=== PATIENT | male | born 1980 | race Caucasian/White ===

== ENCOUNTER 2017-07-30 21:56 | Inpatient (IN) ==
[2017-07-30] MEDS ORDERED: 0.9 % Sodium Chloride 1,000 ML IVC ONE (22:16)
--- NOTE | 2017-07-30 22:31 | Emergency Department Note ---
Disposition Clinical Impression: Cellulitis of right foot Disposition: Admitted As Inpatient Condition: Good Referrals: NONE,PCP [Primary Care Provider] - Forms: ED Satisfaction Letter Skin/Abscess/FB HPI Chief complaint: ED Skin/Abscess/Foreign Body Stated complaint: sores all over states bugs on skin rt ft infect Time Seen by Provider: 07/30/17 22:09 Source: patient Mode of arrival: private vehicle Limitations: no limitations Nursing Notes Reviewed: Yes Vital Signs Reviewed: Yes HPI Narrative: 37-year-old male history of IVDU presents to the ER with a chief complaint of right foot injury. Patient reports on Monday that they were moving something in a trae nail went into the top of his shoe and into his toe. Reports that he was seen 2 days ago and put on Keflex. States that the redness and swelling has worsened since then. No fevers nausea vomiting or diarrhea. Unsure when his last tetanus shot was. He reports he last used IV drugs 5 years ago. No other complaints. Pt Subjective Complaint: lesion Onset (ago): day(s) Tetanus Up to Date: no Location: R foot Consistency: constant Improves with: none Worsens with: none Associated symptoms: Denies: fever, chills, nausea, vomiting Treatments prior to arrival: antibiotic Previous Rx's Medication Instructions Recorded Sulfamethoxazole/Trimeth DS 1 each PO BID #20 tablet 01/01/17 [Bactrim DS] cephALEXin [Keflex] 500 mg PO BID #20 capsule 01/01/17 Allergies Allergy/AdvReac Type Severity Reaction Status Date / Time venom-honey bee Allergy See Verified 07/30/17 22:04 [bee venom (honey bee)] Comments All systems ED: reviewed and negative except as stated. Constitutional: Denies: fever, chills Gastrointestinal: Denies: abdominal pain, nausea, vomiting, diarrhea Integumentary: Reports: lesions Past Medical History - Past Medical History Attestation: Yes The following information was validated with the patient. Source: patient Medical history: Reports: non-contributory Psychiatric history: Reports: bipolar - Social History Smoking Status: Current every day smoker Smokeless Tobacco Status: No Alcohol use: Reports: none Drug use: Reports: none Physical Exam - General Limitations: no limitations General appearance: alert, in no apparent distress - Head Head exam: atraumatic, normocephalic - Eye Eye exam: Present: normal appearance - ENT ENT exam: normal exam - Neck Neck exam: Present: normal inspection - Chest Chest inspection: Present: normal inspection, symmetric chest wall rise - Respiratory Respiratory exam: Present: normal lung sounds bilaterally - Cardiovascular Cardiovascular exam: Present: regular rate, normal rhythm, normal heart sounds - Abdominal Exam Abdominal exam: Present: soft, Non-Tender. Absent: tenderness - Extremities Exam Extremities exam: Present: normal inspection, full ROM - Expanded Upper Extremity Exam Shoulder exam: Present: normal inspection, full ROM Arm exam: Present: normal inspection, full ROM Elbow exam: Present: normal inspection, full ROM Forearm/Wrist exam: Present: normal inspection, full ROM Hand exam: Present: normal inspection, full ROM - Expanded Lower Extremity Exam Hip/Pelvis exam: Present: normal inspection, full ROM Upper leg exam: Present: normal inspection, full ROM Knee exam: Present: normal inspection, full ROM Lower leg exam: Present: normal inspection, full ROM Ankle exam: Present: normal inspection, full ROM Foot/toe exam: Present: full ROM, tenderness (There is tenderness over the dorsum of the right foot), swelling (Extensive soft tissue swelling over the dorsum and medial aspect of the right foot just distal to the ankle), erythema ( Right foot), puncture wound (There is an ulceration at the base of the right great toe with purulent drainage.). Absent: crepitus - Neurological Exam Neurological exam: Present: alert - Psychiatric Psychiatric exam: Present: normal affect - Skin Skin exam: Present: warm, dry, intact Course Course Narrative: Patient seen and examined. Extensive swelling and erythema noted to the right foot. We will obtain a CT scan of his foot as well as labs including ESR and CRP. He will require admission for failed outpatient therapy. He again denies injecting anything into his foot. - Reevaluation(s) Reevaluation #1: Discussed results of imaging and labs with the patient. Vital Signs Temperature 98.2 F 07/30/17 22:04 Pulse Rate 96 07/30/17 22:04 Respiratory Rate 16 07/30/17 22:04 Blood Pressure 125/72 07/30/17 22:04 O2 Sat by Pulse Oximetry 99 07/30/17 22:04 Temperature 98.2 F 07/30/17 22:04 Pulse Rate 86 07/30/17 23:16 Respiratory Rate 16 07/30/17 23:16 Blood Pressure 129/80 07/30/17 23:16 O2 Sat by Pulse Oximetry 97 07/30/17 23:16 Oxygen Delivery Oxygen Delivery Room Air Skin/Abscess/Foreign Body - MDM Narrative Medical decision making narrative: 37-year-old male presents to the ER due to right foot swelling and redness. History of knell striking the top of his foot several days ago. No constitutional symptoms at home. He has been on Keflex 2 days without improvement and actually worsening of symptoms. Elevated ESR and CRP here. CT does not demonstrate any evidence of osteomyelitis more consistent with soft tissue swelling and cellulitis. He has failed outpatient therapy. Patient given vancomycin and Zosyn. Admitted to the hospitalist service for cellulitis felt outpatient therapy. - Lab Data Lab results reviewed: Yes I reviewed the patient's lab results. Result diagrams: 07/30/17 22:30 07/30/17 22:30 Lab Results 07/30/17 07/30/17 07/30/17 Range/Units 22:30 22:30 22:30 WBC 8.9 (4.3-11.1) K/mcL RBC 4.79 (4.19-5.50) M/mcL Hgb 12.9 (12.9-16.9) g/dL Hct 39.9 (37.5-50.1) % MCV 83.3 (83.0-100.0) fL MCH 26.9 L (28.0-33.3) pg MCHC 32.3 (31.6-35.5) g/dL RDW 13.5 (11.5-14.5) % Plt Count 243 (140-400) K/mcL MPV 9.0 L (9.4-12.4) fL Immature Gran % 0.2 (0-4) % Seg Neutrophils % 60.4 % Lymphocytes % 27.9 % Monocytes % 7.5 % Eosinophils % 3.3 % Basophils % 0.7 % Neutrophils # 5.4 (1.6-8.9) K/mcL Lymphocytes # 2.5 (0.6-4.6) K/mcL Monocytes # 0.7 (0.0-1.3) K/mcL Eosinophils # 0.3 (0.0-0.6) K/mcL Basophils # 0.1 (0.0-0.2) K/mcL ESR 67 H (0-10) mm/hr Sodium 139 (136-145) mEq/L Potassium 3.7 (3.5-4.5) mEq/L Chloride 102 (98-109) mEq/L Carbon Dioxide 28 (19-29) mEq/L BUN 15 (8-26) mg/dL Creatinine 0.87 (0.72-1.25) mg/dL Est GFR ( Amer) > 60 (> 60) Est GFR (Non-Af Amer) > 60 (> 60) BUN/Creatinine Ratio 17 (6-26) Glucose 104 H (70-99) mg/dL Calculated Osmolality 289 (280-300) Calcium 9.3 (8.6-10.8) mg/dL C-Reactive Protein 46 H (Less than 5) mg/L - Radiology Data Radiology results reviewed: Yes I reviewed the patient's radiology results. Foot CT 07/30/17 22:17 IMPRESSION: Soft tissue swelling about the foot most prominent dorsally in about the 1st digit. No cortical erosion or periostitis to suggest osteomyelitis. D/ / Chichi Murray MD / Chichi Murray MD Interpreting Provider: Chichi Murray MD Critical Care Time Critical Care Time: Yes Total Critical Care Time: 35 Attestation: Critical care performed: Time is exclusive of separately billable procedures. Time includes: direct patient care, patient reassessment, coordination of patient care, interpretation of data (laboratory data, radiology data, and respiratory data), review of patient's medical records, medical consultation and documentation of patient care. Procedures included in critical care time: Procedures excluded from critical care time: S.B.A.R. - S.B.A.R. Situation: Demographics, MOA Background: Presenting Complaint, Relevant PMH, Meds, & Allergies Assessment: Course and respsone to treatment, Exam Concerns, Patient/Family Expectation, Pertinant Lab Results Recommendation: Barrier(s) to disposition, Recommendation based on pending studies, treatments, or consults S.B.A.R. Report Given to: Dr. Michele Attestation Statement - Attestation Attestation: I, Todd Mcfadden MD, personally evaluated this patient and discussed their management with the resident physician. I reviewed the resident's note and agree with the documented findings, medical decision making, and plan of care. 37-year-old male presents to the emergency department with a complaint of a puncture wound to the top of the right foot which occurred 4 days ago. This was caused by a trae nail in a piece of lumber that he dropped on his foot. He was seen 2 days ago at another facility and started on Keflex. He presents here tonight complaining that the area is just getting progressively worse despite the Keflex. He complains of increased pain and swelling and redness to the right big toe and distal foot. He has an ulceration on the top of the foot with. The drainage. He denies any fever. On examination patient is a well-developed well-nourished well-appearing male in no acute distress. He is alert and oriented 3. There is no cyanosis or diaphoresis. Breath sounds are clear and equal bilaterally. Heart regular rate and rhythm. Abdomen is soft and nontender with normal bowel sounds. The right big toe and distal right foot are markedly swollen and erythematous and warm to touch. Markedly tender to palpation. There is an open ulceration on the dorsum of the right distal foot at the base of the big toe with purulent drainage. No palpable crepitus. Labs reviewed. WBC normal with normal differential. Elevated ESR and CRP. CT of the foot obtained and shows soft tissue swelling with no evidence of osteomyelitis. Blood cultures and wound culture obtained and patient started on IV vancomycin and Zosyn. The hospitalist, Dr. Michele, was consulted and accepted admission of the patient.
[2017-07-30 22:40] LABS: Basophils # 0.1 K/mcL (0.0-0.2); Basophils % 0.7 %; Eosinophils # 0.3 K/mcL (0.0-0.6); Eosinophils % 3.3 %; Hematocrit 39.9 % (37.5-50.1); Hemoglobin 12.9 g/dL (12.9-16.9); Immature Granulocytes % 0.2 % (0-4); Lymphocytes # 2.5 K/mcL (0.6-4.6); Lymphocytes % 27.9 %; Mean Corpuscular HGB Conc 32.3 g/dL (31.6-35.5); Mean Corpuscular Hemoglobin 26.9 pg (28.0-33.3); Mean Corpuscular Volume 83.3 fL (83.0-100.0); Monocytes # 0.7 K/mcL (0.0-1.3); Monocytes % 7.5 %; Neutrophils # 5.4 K/mcL (1.6-8.9); Platelet Count 243 K/mcL (140-400); Red Blood Count 4.79 M/mcL (4.19-5.50); Red Cell Distribution Width 13.5 % (11.5-14.5); Segmented Neutrophils % 60.4 %
[2017-07-30 22:53] LABS: BUN/Creatinine Ratio 17 (6-26); Blood Urea Nitrogen 15 mg/dL (8-26); C-Reactive Protein 46 mg/L (Less than 5); Calcium 9.3 mg/dL (8.6-10.8); Carbon Dioxide 28 mEq/L (19-29); Chloride 102 mEq/L (98-109); Glucose 104 mg/dL (70-99); Osmolality,Calculated 289 (280-300); Potassium 3.7 mEq/L (3.5-4.5); Sodium 139 mEq/L (136-145); eGFR For African Americans > 60 (> 60); eGFR For Non-African Americans > 60 (> 60)
[2017-07-30] MEDS ORDERED: Piperacillin/Tazobactam 3.375 GM in D5% in Water (Mini-Bag+) 100 ML IVPB ONE (23:27)
[2017-07-30] MEDS ORDERED: Vancomycin 1,250 MG in D5% in Water 250 ML IVPB ONE (23:27)
[2017-07-31] MEDS ORDERED: Acetaminophen 325 MG TABLET PO PRN (02:58)
[2017-07-31] MEDS ORDERED: Naloxone 0.4 MG/ML INJ IVP PRN (02:58)
[2017-07-31] MEDS ORDERED: Ketorolac 30 MG/ML VIAL IVP PRN ×2 (02:58→17:04)
[2017-07-31] MEDS ORDERED: Ondansetron 4 MG/2 ML VIAL IVP PRN (02:58)
[2017-07-31] MEDS ORDERED: Td (TENIVAC) Vaccine 0.5 ML VIAL IM ONE (03:00)
--- NOTE | 2017-07-31 03:07 | Internal Med History&Physical ---
<Jose Alberto Landry - Last Filed: 07/31/17 03:03> Date of Encounter: 07/31/17 Time of Encounter: 03:03 Assessment and Plan (1) Cellulitis of right foot Current visit: Yes Status: Acute - Distal right hallux lesion from uasc. - CT shows no osteomyelitis or abscess. - Failed outpatient keflex, bactrim - Wound and blood cultures pending. - Will start vancomycin and zosyn. tetanus vaccine. (2) DVT prophylaxis Current visit: Yes Status: Acute - heparin 5000 units. Internal Medicine - H&P: HPI Chief complaint: right first toe injury Admitted From: Emergency Dept Plans for Post Hospital Care: Home History of present illness: Mr. Prado is a 37 year old male with PMHx of former heroin abuse presents to ED with a complaint of right 1st toe injury. 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 He states this is the 3rd ED he has gone to. He has tried bactrim and keflex at other EDs and has taken 2 days of keflex however it has been getting worse. He has noticed erythema, swelling, purulent discharge but denies symptoms of fevers, chills, nausea, vomiting, SOB, CP. He states he is not up to date on his tetanus shot. In the ED, VS unremarkable. Labs show elevated ESR and CRP, otherwise unremarkable. CT scan showed soft tissue inflammation without evidence of abscess or osteomyelitis. Past Med Surg Social Fam HX - Past Medical History Medical history: non-contributory Psychiatric history: bipolar - Social History Smoking Status: Current every day smoker Smokeless Tobacco Status: No Alcohol use: none Drug use: none (former heroin abuse, 5 years clean) - Family History Mother Name: MIKE BAILEY Living Status: Still Living Hx Family Endocrine Disorder: Yes (DM) Internal Medicine - H&P: Meds Sulfamethoxazole/Trimeth DS [Bactrim DS] 1 each PO BID #20 tablet 01/01/17 [Rx] cephALEXin [Keflex] 500 mg PO BID #20 capsule 01/01/17 [Rx] 3 Allergy/AdvReac Type Severity Reaction Status Date / Time venom-honey bee Allergy See Verified 07/30/17 22:04 [bee venom (honey bee)] Comments All Systems PM: A 10-system review of systems was performed and is negative for pertinent findings except as documented above in the HPI. - Constitutional Constitutional: no chills, no fatigue, no fever(s), no lethargy - Cardiovascular Cardiovascular ROS IM: no chest pain, no dyspnea, no dyspnea on exertion - Respiratory Respiratory: no cough, no dyspnea, no dyspnea on exertion - Gastrointestinal Gastrointestinal: no abdominal pain, no nausea, no vomiting - Musculoskeletal Musculoskeletal ROS IM: numbness (distal right hallux), no tingling - Integumentary Integumentary IM: erythema, new lesions (right dorsum of hallux. ) - Neurological Neurological ROS: numbness, no tingling, no weakness - Constitutional Vitals: Temp Pulse Resp BP Pulse Ox 98.8 F 79 17 130/79 99 07/31/17 01:43 07/31/17 01:43 07/31/17 01:43 07/31/17 01:43 07/31/17 01:43 Exam: Gen.: Vitals noted. No acute distress. AAOx3 HEENT: oropharynx clear, Normocephalic, atraumatic, MMM Cardiac: RRR, no murmur, +S1/S2 Pulmonary: CTA bilaterally, no wheezes, rales or rhonchi, equal chest expansion MSK: ROM intact, no joint swelling noted Extremities: Right hallux with linear incision measuring 2 cm. Purulent drainage. Erthema and swelling extending to mid foot. Distal pulses intact. Decreased sensation in distal hallux. no BLE edema, nontender calf, no cyanosis or clubbing Neuro: A&Ox3, moves all extremities, no focal deficits Psych: Appropriate mood and behavior Internal Med - H&P Results - Labs CBC & Chem 7: 07/30/17 22:30 07/30/17 22:30 <To Michele - Last Filed: 07/31/17 05:11> Date of Encounter: 07/31/17 Time of Encounter: 04:30 - Constitutional Constitutional: no chills, no fever(s), no night sweats - EENT Eyes: no blurry vision, no change in vision Ears: no ear pain, no tinnitus Nose, mouth and throat: no sore throat - Cardiovascular Cardiovascular ROS IM: no chest pain, no dyspnea - Respiratory Respiratory: no cough, no hemoptysis - Gastrointestinal Gastrointestinal: no abdominal pain, no diarrhea, no nausea, no vomiting - Genitourinary Genitourinary ROS male: no dysuria, no flank pain, no hematuria - Musculoskeletal Musculoskeletal ROS IM: joint swelling (at site of foot injury) - Neurological Neurological ROS: no focal weakness, no headache(s) - Psychiatric Psychiatric: no anxiety, no depression - Endocrine Endocrine IM: no polydipsia, no polyuria - Hematologic/Lymphatic Hematologic/Lymphatic: no easy bruising - Allergic/Immunologic Allergic/Immunologic: no GI upset with certain foods - Constitutional Vitals: Temp Pulse Resp BP Pulse Ox 98.7 F 75 18 128/75 99 07/31/17 04:05 07/31/17 04:05 07/31/17 04:05 07/31/17 04:05 07/31/17 04:05 General appearance: Present: cooperative, A&O X 3 - Head Head exam: Present: atraumatic - Eye Eye exam: Present: PERRL. Absent: scleral icterus - ENT ENT exam: Absent: mucous membranes dry, normal exam - Neck Neck exam general surgery: Present: supple - Respiratory Respiratory exam: Present: CTAB. Absent: rales, rhonchi, wheezes - Cardiovascular Cardiovascular exam: Present: RRR, +S1, +S2 - GI/Abdominal GI/Abdominal exam: Present: soft. Absent: tenderness - Extremities Exam Extremities exam: Present: full ROM. Absent: calf tenderness Additional comments: right with swelling, redness, warmth, open wound with mild purulent drainage just proximal to right great toe - Back Exam Back exam: Absent: CVA tenderness (L), CVA tenderness (R) Internal Med - H&P Results - Labs CBC & Chem 7: 07/30/17 22:30 07/30/17 22:30 - Attending Attestation I discussed the patient POARCH, PMH, ROS, lab data, and exam findings with Dr. Landry. I then saw and examined patient independently as well. Patient has a foot wound with surrounding cellulitis and drainage from the open wound. I reviewed the CT fidnings. I agree with Tetanus vaccine. Given the nature of his injury and the extent of infection, I will consult Podiatry to see him as he may need surgical intervention this hospitalization. Patient is a former heroin abuser, but he has been clean for ~ 5 years. He is very open and appears honest and telling the truth. Cultures have been collected both from blood and from his wound. Other than my comments noted above and exam findings , I agree with Dr. Landry's assessment and plan.
[2017-07-31] MEDS ORDERED: Vancomycin 1,250 MG in D5% in Water 250 ML IVPB SCH (04:00)
[2017-07-31] MEDS: *HR* Heparin 5,000 UNIT/ML VIAL SQ SCH ×2 (06:52→17:13)
[2017-07-31] MEDS: Piperacillin/Tazobactam 3.375 GM in D5% in Water 50 ML IVPB SCH ×3 (09:37→23:56)
--- NOTE | 2017-07-31 12:21 | Podiatry Consult Note ---
Date of Encounter: 07/31/17 Time of Encounter: 12:05 Assessment and Plan (1) Cellulitis of right foot Current visit: Yes Status: Acute Cellulitis of right hallux secondary to a traumatic wound. Right Foot CT: Soft tissue swelling about the foot most prominent dorsally in about the 1st digit. No cortical erosion or periostitis to suggest osteomyelitis. No fluid collection seen. ESR: 67, CRP: 46 WBC: 8.9 Wound and Blood cultures obtained and pending. Scant amount of pus expressed from wound with palpation to the base of the right great toe. Plan: Currently on IV Zosyn and Vancomycin. If no improvement to right hallux after 24 hours of IV antibiotic therapy will plan for a debridement by Dr. Marshall. Will follow up with patient tomorrow. Wound care orders will be written to cleanse right great toe daily with soap and water, pat dry, apply 4x4 dry sterile gauze with kerlix and tape. History of Present Illness HPI: Mr. Prado is a 37 year old male admitted to [facility] with cellulitis of the right foot. Patient has no medical history. Psychiatric history of Bipolar, patient states he does not take any medication. Patient states 5 days ago he was helping a friend tear down a barn and wood with nails fell on his right foot. Patient states a nail went through his right shoe and into his foot. Patient states there was a small pinpoint hole where the nail went in. Patient went to the ED where he was started on Penicillin. Patient states the right great toe continued to swell with redness and went back to the ED where they started him on Keflex. Patient states the toe got worse and that is what brought him to the ED last night. Patient does have a history of IV drug abuse, denies any current recreational drug use. Per medical records patient was treated in the ED for a heroin OD in September of 2016. 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 No c/o fever, chills, cp, sob or flu like symptoms. Past Med Surg Social Fam HX - Past Medical History Medical history: non-contributory Psychiatric history: bipolar - Social History Smoking Status: Current every day smoker Smokeless Tobacco Status: No Alcohol use: none Drug use: none (former heroin abuse, 5 years clean) - Family History Mother Name: MIKE LYNN Living Status: Still Living Hx Family Endocrine Disorder: Yes (DM) Medications and Allergies No Known Home Drugs 07/31/17 [History] 3 Allergy/AdvReac Type Severity Reaction Status Date / Time venom-honey bee Allergy See Verified 07/30/17 22:04 [bee venom (honey bee)] Comments All Systems Reviewed: A 10-system review of systems was performed and is negative for pertinent findings except as documented above in the HPI. Physical Exam - Constitutional Vitals: Temp Pulse Resp BP Pulse Ox 97.9 F 74 14 128/72 97 07/31/17 11:15 07/31/17 11:15 07/31/17 11:15 07/31/17 11:15 07/31/17 11:15 - Head Head exam: Present: atraumatic, normal inspection - Expanded Lower Extremities Exam Foot/Toe exam: Present: erythema (Right great toe is globally edematous and erythematous with an open wound to the dorsal aspect of the right hallux measuring 1.2 cm in length x 2 cm in width. Base of wound is red and yellow periwound ertythema ascending to the 1st metatarasl heads and #2 through #5 metatarsal heads of the right foot. Scant amount of pus expressed, no probe to bone, no exposed bone, ligament or tendon. No odor. Foot is warm. Pedal pulses palpable. ) - Neurological Exam Neurological exam: Present: alert, oriented X3 - Vascular Capillary Refill: less than 3 seconds - Ankle & Foot Exam: Muscle strength: 5/5 and equal bilaterally. Results - Labs Result Diagrams: 07/30/17 22:30 07/30/17 22:30 Labs: Abnormal lab results MCH 26.9 pg (28.0-33.3) L 07/30/17 22:30 MPV 9.0 fL (9.4-12.4) L 07/30/17 22:30 ESR 67 mm/hr (0-10) H 07/30/17 22:30 Glucose 104 mg/dL (70-99) H 07/30/17 22:30 C-Reactive Protein 46 mg/L (Less than 5) H 07/30/17 22:30 All other labs normal. Consult Discharge Plan - Plan Referrals: NONE,PCP [Primary Care Provider] -
[2017-07-31] MEDS: Vancomycin 1,250 MG in D5% in Water 250 ML IVPB SCH ×2 (15:02→23:56)
--- NOTE | 2017-07-31 16:05 | Event Note ---
Date of Encounter: 07/31/17 Time of Encounter: 16:04 37-year-old male with no significant past medical history, admitted with right great toe/foot infection after receiving the heavy blow to his right foot at work place about 5 days ago. Patient seen and examined at bedside. Right foot pain controlled with Tylenol. Chest-S1, S2 heard. Lungs are clear to auscultation Right great toe-surgical dressing intact. Right great toe/foot cellulitis-continue IV vancomycin and Zosyn for now. Follow-up blood and wound cultures. Pain control with when necessary Tylenol, Toradol and Percocet. Podiatry consult noted, continue local wound care, plan for possible debridement in the event of poor wound healing. CT right foot shows no evidence of osteomyelitis.
--- NOTE | 2017-07-31 19:01 | Event Note ---
Date of Encounter: 07/31/17
[2017-07-31] MEDS: *HR* OxyCODONE/APAP 5/325 TABLET PO PRN (20:50)
[2017-08-01] MEDS: *HR* Heparin 5,000 UNIT/ML VIAL SQ SCH (05:39)
[2017-08-01 07:13] VITALS: BP 119/79
[2017-08-01] MEDS: Piperacillin/Tazobactam 3.375 GM in D5% in Water 50 ML IVPB SCH (09:20)
[2017-08-01 10:20] LABS: Hematocrit 43.1 % (37.5-50.1); Mean Corpuscular HGB Conc 32.5 g/dL (31.6-35.5); Mean Platelet Volume 9.1 fL (9.4-12.4); Platelet Count 268 K/mcL (140-400); Red Blood Count 5.19 M/mcL (4.19-5.50); Red Cell Distribution Width 13.2 % (11.5-14.5)
[2017-08-01 10:33] LABS: BUN/Creatinine Ratio 12 (6-26); Blood Urea Nitrogen 10 mg/dL (8-26); Calcium 9.9 mg/dL (8.6-10.8); Carbon Dioxide 28 mEq/L (19-29); Chloride 104 mEq/L (98-109); Glucose 118 mg/dL (70-99); Osmolality,Calculated 290 (280-300); Potassium 4.5 mEq/L (3.5-4.5); Sodium 140 mEq/L (136-145); eGFR For African Americans > 60 (> 60); eGFR For Non-African Americans > 60 (> 60)
[2017-08-01] MEDS: *HR* OxyCODONE/APAP 5/325 TABLET PO PRN (11:41)
[2017-08-01] MEDS: Vancomycin 1,250 MG in D5% in Water 250 ML IVPB SCH (11:41)
[2017-08-01] MEDS ORDERED: Nicotine 14 MG PATCH.TD24 TD SCH (12:30)
[2017-08-01] MEDS ORDERED: Aminoglycoside Consult 1 EACH MC ONE (14:54)
--- NOTE | 2017-08-01 17:53 | Discharge Summary ---
Date of Encounter: 08/01/17 Time of Encounter: 09:00 - Discharge Diagnosis (1) Cellulitis of right foot Priority: Primary Status: Acute Comments: Edgar Prado is a 37-year-old male with no significant past medical history who presented to [facility] on 07/31/2017 with complaints of wound to right foot. He was found to have extensive cellulitis and admitted for IV ATB and podiatry consult. The plan was for OR debridement on 08/02/2017 however patient became aggressive and agitated and abruptly left AGAINST MEDICAL ADVICE on 08/05/2017. 1. Right foot cellulitis: Cellulitis of right hallux secondary to a traumatic wound. Right Foot CT: Soft tissue swelling to right foot most prominent dorsally in about the 1st digit. No cortical erosion or periostitis to suggest osteomyelitis. No fluid collection seen. ESR 67, CRP 46, WBC 8.9. Lactic acid normal. Treated with IV Vanco and Zosyn. Evaluated by podiatry who recommended OR debridement on 08/02/17; patient was initially agreeable however left AMA on 08/01/2017 2. Substance abuse: Patient has no history of IV drug abuse. He was aggressive agitated and hostile with staff on 08/01/2017 suspect he was under the influence of IV drugs and possibly and withdrawal. He refused UDS. - Discharge Medications Home Medications: No Known Home Drugs 07/31/17 [History] Allergies/Adverse Reactions: 3 Allergy/AdvReac Type Severity Reaction Status Date / Time venom-honey bee Allergy See Verified 07/30/17 22:04 [bee venom (honey bee)] Comments Date of admission: 07/31/17 04:55 Primary care physician: PCP NONE Consults: 07/31/17 04:57 Consult to Podiatry [CONS] Routine Consulting Provider: Podiatry [facility] Reason for Consult: foot injury/trauma/infection Call Completed: No Discharging clinician: Rosey Walters Anticipated date of discharge: 08/01/17 - Patient Status Disposition: Left Against Medical Advice Condition: Good - Discharge Instructions Follow Up With: NONE,PCP [Primary Care Provider] - Interval History: Patient was seen and examined earlier this morning. I actually seen patient 3 times a day. Patient was upset with progress of his foot. Says that he has been to 3 different hospitals in his foot is not getting better he does not want to stay here and just get IV ATB he rather go home and give someone else's bed. Stay a great deal of time explaining the importance of IV ATB to the patient and plan for possible debridement if no improvement per podiatry exam. Patient was adamant that no one was going to touch his foot with a knife. He became aggressive and hostile with staff cursing and yelling and during objects in the room. Security was called at bedside with initial de-escalation and his behavior however he became upset several hours later and left AGAINST MEDICAL ADVICE. Hospital course: Mr. Prado is a 37 year old male - Time Spent with Patient Total time spent providing and/or coordinating discharge services: - Constitutional Vitals: Temp Pulse Resp BP Pulse Ox 98.1 F 79 14 119/79 98 08/01/17 07:12 08/01/17 07:12 08/01/17 07:12 08/01/17 07:12 08/01/17 07:12 General appearance: Present: A&O X 3 - Head Head exam: Present: atraumatic, normocephalic - Eye Eye exam: Present: PERRL, conjuntiva pink, sclera anicteric Pupils: Present: PERRL - Neck Neck exam general surgery: Present: supple, trachea midline. Absent: lymphadenopathy - Respiratory Respiratory exam: Present: CTAB. Absent: accessory muscle use, rales, rhonchi, wheezes - Cardiovascular Cardiovascular exam: Present: RRR, +S1, +S2. Absent: diastolic murmur, gallop, rubs, systolic murmur - GI/Abdominal GI/Abdominal exam: Present: normal bowel sounds, soft, no peritoneal signs. Absent: distended, tenderness - Extremities Exam Extremities exam: Present: joint swelling, warm, radial pulses palpable and symmetrical. Absent: calf tenderness, cyanotic, pedal edema - Neurological Exam Neurological exam: Present: CN II-XII intact, oriented X3, no focal deficits. Absent: pronater drift, facial droop, speech deficit Additional comments: Aggressive and agitated. - Skin Skin exam: Present: dry Additional comments: Right great toe with large ulceration and surrounding erythema.
--- NOTE | 2017-08-01 19:17 | Podiatry Consult Note ---
Date of Encounter: 08/01/17 Time of Encounter: 11:50 Assessment and Plan (1) Cellulitis of right foot Status: Acute I had a thorough review with the patient regarding his condition, my findings, his imaging, and culture results with resistant MRSA as well as my recommendations for treatment. discussed area where pus is located and recommended we open this abscess area and wash it out. nature of procedure I&D right foot, excisional debridement of wound discussed with patient at length. risks vs benefits potential complications and consequences discussed. discussed he is at high risk for developing worsening infection if he does not open this up and it is less likely to worsen if it is flushed out but it is still possible. it was explained to the patient he could lose part of his foot or his leg or his life if the infection spread to his bone, further in soft tissue or blood stream and there is an increased chance of these things happening by not having the procedure in my opinion. The patient says he understands and wants to have it washed out and the wound cleaned up. understands it will be left open to drain and this is a staged procedure and he could need further surgery later. All of his questions were answered and informed consent was signed. Patient was in good spirits and in agreement with plan of care discussed with him when I left the room. subsequently at the time of writing this note, I see he has signed out against medical advise. History of Present Illness Chief complaint: right foot infection HPI: Mr. Prado is a 37 year old male who has a h/o of IVDA. It has been reported in the chart his last overdose was around 10 months ago. Patient says he dropped something on his right foot which had nails in it and one went into his foot. He went to the ER and was started on oral antibiotics. Ultimately the redness got worse and he says the area turned into an open wound. He came back to the ER and was admitted for IV antibiotics. He says his right foot has a tingling pain in it and he has gotten pus out of it. He squeezes the area today and there are droplets of purulent drainage. CT scan was done. Micrbiology cultures of the wound showing possible MRSA at this point. Podiatry consulted for evaluation of the right foot. ER addressed tetanus status. Past Med Surg Social Fam HX - Past Medical History Medical history: non-contributory Psychiatric history: bipolar - Social History Smoking Status: Current every day smoker Smokeless Tobacco Status: No Alcohol use: none Drug use: none (former heroin abuse) - Family History Mother Name: MIKE BAILEY Living Status: Still Living Hx Family Endocrine Disorder: Yes (DM) Medications and Allergies No Known Home Drugs 07/31/17 [History] 3 Allergy/AdvReac Type Severity Reaction Status Date / Time venom-honey bee Allergy See Verified 07/30/17 22:04 [bee venom (honey bee)] Comments All Systems Reviewed: A 10-system review of systems was performed and is negative for pertinent findings except as documented above in the HPI. - Constitutional Constitutional: as per HPI, no fever(s) - Cardiovascular Cardiovascular: as per HPI, no dyspnea - Respiratory Respiratory: no cough, no wheezing - Musculoskeletal Musculoskeletal: as per HPI, joint swelling, tingling Physical Exam - Constitutional Vitals: Temp Pulse Resp BP Pulse Ox 98.1 F 79 14 119/79 98 08/01/17 07:12 08/01/17 07:12 08/01/17 07:12 08/01/17 07:12 08/01/17 07:12 Exam: well developed and nourished male in no acute distress right foot DP pulse palpable. CFT < 3 sec x 5 digits right foot. right foot warm to touch mild to moderate edema of the right foot and hallux. right hallux ulceration dorsally extending medially into the macerated interspace. wound contains 60% granular 30% fibrotic and 10% necrotic. ulceration does not probe to bone, there is fluctuance proximally that does produce some purulent drainage when compressed into the ulceration site. there is erythema over the first MTP joint of the right foot extending to the midfoot and onto the hallux. pain with palpation of the cellulitic and fluctuant area and with movement of the forefoot. reports tingling, sensation is intact to light touch. Results - Labs Result Diagrams: 08/01/17 09:51 08/01/17 09:51 Labs: Abnormal lab results MCH 27.0 pg (28.0-33.3) L 08/01/17 09:51 MPV 9.1 fL (9.4-12.4) L 08/01/17 09:51 ESR 67 mm/hr (0-10) H 07/30/17 22:30 Glucose 118 mg/dL (70-99) H 08/01/17 09:51 C-Reactive Protein 46 mg/L (Less than 5) H 07/30/17 22:30 H & H 08/01/17 Range/Units 09:51 Hgb 14.0 (12.9-16.9) g/dL Hct 43.1 (37.5-50.1) % All other labs normal. - Diagnostic results Ankle/Foot CT: report reviewed, image reviewed Consult Discharge Plan - Plan Referrals: NONE,PCP [Primary Care Provider] -
== END 2017-08-01 14:55 | disposition left against medical advice (07) | DRG 603 ==
LOC: EMEROO 21:56 → 3NENU 21:56 → SUATTDRO 07-31 04:55
PROVIDERS: ADMIT Pediatrics; ATTEND Internal Medicine